=== PATIENT | male | born 1940 | race Hispanic/Latino ===

== ENCOUNTER 2018-05-01 11:10 | Emergency (ER) | payer MEDICARE, MEDICAID ==
[~2018-05-01] VITALS: Ht 175.3 cm; Wt 100.0 kg
[~2018-05-01 11:10] MED LIST: ASPIRIN ENTERIC81 MG PO; ASPIRIN81 M1 OR; ATENOLOL25 MG OR; ATENOLOL25 MG PO; BACTRIM DS1 TAB PO; CIPRO XR500 MG PO; CIPRO750 MG PO; CIPROFLOXACN500 MG PO; ENALAPRIL2.5 MG PO; LORTAB 5/3255 MG PO; LORTAB5 OR; OMEGA-31000 MG OR; ONDANSETRON4 MG PO; OXYCO/APAP1 TA2 OR; PRAVACHOL40 MG PO; PRAVACHOL80 MG OR; PRAVASTATIN20 MG PO; PRAVASTATIN40 MG OR; ST JOSEPH75 MG OR; TAM75CAP PO; ULTRAM50 M1 PO; [UNRECOGNIZED DRUG - REMARK]; [UNRECOGNIZED DRUG - REMARK]
[2018-05-01 11:49] LABS: HEMATOCRIT 45.7 % (39.0-50.0); HEMOGLOBIN 15.2 g/dl (14.0-18.0); IMMATURE GRANULOCYTES 0.3 % (0.0-1.0); MEAN CELL VOLUME 90.1 fL CALC (80.0-100.0); MEAN CORPUSCULAR HGB CONC 33.3 g/L CALC (32.0-36.0); NEUT# 6.89 thou/uL (1.82-7.42); RED BLOOD COUNT 5.07 mill/uL (4.70-6.10); RED CELL DISTRI WIDTH 12.9 % (11.5-15.5)
[2018-05-01 12:16] LABS: ALBUMIN 3.9 g/dL (3.2-5.0); ALKALINE PHOSPHATASE 101 u/l (38-126); ANION GAP 12 (6-22 (CALC)); BILIRUBIN, TOTAL 0.6 mg/dL (0.0-1.4); BUN 22 mg/dL (8-23); BUN/CREATININE RATIO 23 (12-20 (CALC)); CARBON DIOXIDE 29 mmol/l (22-30); CHLORIDE 104 mmol/l (95-108); GFR > 60 ML/MIN (>=60 (CALC)); GFR FOR AFR.AMER. > 60 ML/MIN (>=60 (CALC)); LIPASE 202 u/l (23-300); SGOT/AST 20 u/l (19-48); SGPT/ALT 34 u/l (11-66); SODIUM 141 mmol/l (137-146); TOTAL PROTEIN 7.3 g/dL (6.3-8.2)
[2018-05-01] MEDS ORDERED: TORADOL PO (12:56)
[2018-05-01] MEDS ORDERED: PROVENTIL108 MCG/AC IN (13:01)
[2018-05-01] MEDS ORDERED: ZITHROMAX250 MG PO (13:01)
[2018-05-01 13:25] VITALS: BP 132/78
== END 2018-05-01 13:25 | disposition home or self-care (01) ==
LOC: ED 11:10
PROVIDERS: Emergency Medicine
DX: R07.89 Other chest pain (principal); J40 Bronchitis, not specified as acute or chronic; R51 Headache; R06.00 Dyspnea, unspecified

== ENCOUNTER 2018-08-14 08:59 | Inpatient (IN) | payer MEDICARE, MEDICAID ==
[~2018-08-14] VITALS: Ht 175.3 cm; Wt 99.5 kg
[~2018-08-14 08:59] MED LIST changes: +PROVENTIL108 MCG/AC IN; +TORADOL PO; +ZITHROMAX250 MG PO
[2018-08-14] MEDS ORDERED: NORCO1 TA1 PO (10:20)
[2018-08-19] VITALS (8 sets, daily range): BP systolic 102–127; BP diastolic 33–66
[2018-08-19] MEDS ORDERED: CEPHALEXIN500 MG PO (07:24)
[2018-08-19] MEDS ORDERED: BENZONATATE200 MG PO (07:24)
[2018-08-20] VITALS: BP 151/67
[2018-08-20 04:00] VITALS: BP 113/63
[2018-08-20 05:22] LABS: IMMATURE GRANULOCYTES 0.4 % (0.0-5.0); MEAN CELL VOLUME 87.6 fL CALC (80.0-100.0); MEAN CORPUSCULAR HGB 30.2 pG CALC (26.0-32.0); MEAN CORPUSCULAR HGB CONC 34.5 g/L CALC (32.0-36.0); NEUT# 6.62 thou/uL (1.82-7.42); RED BLOOD COUNT 4.27 mill/uL (4.70-6.10); RED CELL DISTRI WIDTH 11.7 % (11.5-15.5)
[2018-08-20 05:47] LABS: ALKALINE PHOSPHATASE 53 u/l (38-126); ANION GAP 11 (6-22 (CALC)); BILIRUBIN, TOTAL 0.8 mg/dL (0.0-1.4); BUN 17 mg/dL (8-23); BUN/CREATININE RATIO 21 (12-20 (CALC)); CARBON DIOXIDE 27 mmol/l (22-30); CHLORIDE 103 mmol/l (95-108); CREATININE 0.8 mg/dL (0.7-1.3); GFR > 60 ML/MIN (>=60 (CALC)); GFR FOR AFR.AMER. > 60 ML/MIN (>=60 (CALC)); POTASSIUM 4.2 mmol/l (3.5-5.1); SGOT/AST 29 u/l (19-48); SODIUM 136 mmol/l (137-146)
[2018-08-20 05:58] LABS: ALBUMIN 3.1 g/dL (3.2-5.0); MAGNESIUM 1.4 mg/dL (1.6-2.3); TOTAL PROTEIN 5.5 g/dL (6.3-8.2)
[2018-08-20 06:03] LABS: HEMATOCRIT 37.4 % (39.0-50.0); HEMOGLOBIN 12.9 g/dl (14.0-18.0)
[2018-08-20 07:48] VITALS: BP 109/64
[2018-08-20 11:44] VITALS: BP 106/69
[2018-08-20] MEDS ORDERED: TRAMADOL HCL50 MG PO (12:36)
== END 2018-08-20 13:40 | disposition home health service (06) | DRG 483 ==
LOC: MS2 08-19 07:11 → OR 08-19 09:30 → MS2 08-20 13:40
PROVIDERS: Internal Medicine Nephrology; ADMIT Orthopaedic Surgery; ATTEND Orthopaedic Surgery
PROC: 0RRK00Z Replacement of Left Shoulder Joint with Reverse Ball and Socket Synthetic Substitute, Open Approach (ICD-10-PCS; principal; 2018-08-19)
PROC: 0LS40ZZ Reposition Left Upper Arm Tendon, Open Approach (ICD-10-PCS; 2018-08-19)
DX: M19.012 Primary osteoarthritis, left shoulder (principal); S46.112A Strain of muscle, fascia and tendon of long head of biceps, left arm, initial encounter; M75.112 Incomplete rotator cuff tear or rupture of left shoulder, not specified as traumatic; I25.2 Old myocardial infarction; X58.XXXA Exposure to other specified factors, initial encounter; Z87.891 Personal history of nicotine dependence
CPT/HCPCS: C9290; J2710

== ENCOUNTER 2018-11-11 08:00 | Outpatient (RCR) | payer MEDICARE, MEDICAID ==
[~2018-11-11 08:00] MED LIST changes: +BENZONATATE200 MG PO; +CEPHALEXIN500 MG PO; +NORCO1 TA1 PO; +TRAMADOL HCL50 MG PO
== END 2018-12-24 11:29 | disposition home or self-care (01) ==
LOC: OT 08:00
PROVIDERS: ATTEND Orthopaedic Surgery
DX: Z47.1 Aftercare following joint replacement surgery (principal); Z96.612 Presence of left artificial shoulder joint

== ENCOUNTER 2019-10-11 07:54 | Emergency (ER) | payer MEDICARE, MEDICAID ==
[~2019-10-11] VITALS: Ht 175.3 cm; Wt 90.0 kg
[2019-10-11 09:20] LABS: HEMOGLOBIN 14.2 g/dl (14.0-18.0); IMMATURE GRANULOCYTES 0.3 % (0.0-5.0); MEAN CELL VOLUME 86.7 fL CALC (80.0-100.0); MEAN CORPUSCULAR HGB 29.5 pG CALC (26.0-32.0); NEUT# 7.28 thou/uL (1.82-7.42); RED BLOOD COUNT 4.82 mill/uL (4.70-6.10); RED CELL DISTRI WIDTH 12.1 % (11.5-15.5)
[2019-10-11 09:29] LABS: HEMATOCRIT 41.8 % (39.0-50.0)
[2019-10-11 09:33] LABS: ALBUMIN 3.7 g/dL (3.2-5.0); ALKALINE PHOSPHATASE 75 u/l (38-126); ANION GAP 12 (6-22 (CALC)); BILIRUBIN, TOTAL 0.8 mg/dL (0.0-1.4); BUN 17 mg/dL (8-23); BUN/CREATININE RATIO 23 (12-20 (CALC)); CARBON DIOXIDE 27 mmol/l (22-30); CHLORIDE 100 mmol/l (95-108); CREATININE 0.7 mg/dL (0.7-1.3); GFR > 60 ML/MIN (>=60 (CALC)); GFR FOR AFR.AMER. > 60 ML/MIN (>=60 (CALC)); POTASSIUM 4.4 mmol/l (3.5-5.1); SGOT/AST 24 u/l (19-48); SODIUM 135 mmol/l (137-146); TOTAL PROTEIN 6.6 g/dL (6.3-8.2)
[2019-10-11 11:00] VITALS: BP 158/71
[2019-10-11] MEDS ORDERED: ULTRAM50 M1 PO (11:14)
[2019-10-11] MEDS ORDERED: CEPHALEXIN500 MG PO (11:14)
== END 2019-10-11 11:49 | disposition home or self-care (01) ==
LOC: ED 07:54
PROVIDERS: Emergency Medicine
DX: S09.93XA Unspecified injury of face, initial encounter (principal); J06.9 Acute upper respiratory infection, unspecified; G93.9 Disorder of brain, unspecified; W19.XXXA Unspecified fall, initial encounter

== ENCOUNTER 2021-09-18 22:45 | Emergency (ER) | payer MEDICARE, MEDICAID ==
[~2021-09-18] VITALS: Ht 175.3 cm; Wt 88.6 kg
[2021-09-18 23:54] LABS: HEMATOCRIT 43.5 % (39.0-50.0); HEMOGLOBIN 14.8 g/dl (14.0-18.0); IMMATURE GRANULOCYTES 0.2 % (0.0-5.0); MEAN CORPUSCULAR HGB 29.6 pG CALC (26.0-32.0); NEUT# 8.62 thou/uL (1.82-7.42); RED CELL DISTRI WIDTH 12.2 % (11.5-15.5)
[2021-09-19 00:14] LABS: ALBUMIN 3.9 g/dL (3.2-5.0); ALKALINE PHOSPHATASE 84 u/l (38-126); AMYLASE 84 u/l (30-110); ANION GAP 11 (6-22 (CALC)); BUN 22 mg/dL (8-23); BUN/CREATININE RATIO 28 (12-20 (CALC)); CARBON DIOXIDE 30 mmol/l (22-30); CHLORIDE 101 mmol/l (95-108); CREATININE 0.8 mg/dL (0.7-1.3); GFR > 60 ML/MIN (>=60 (CALC)); GFR FOR AFR.AMER. > 60 ML/MIN (>=60 (CALC)); LIPASE 144 u/l (23-300); POTASSIUM 4.2 mmol/l (3.5-5.1); SGOT/AST 29 u/l (19-48); SODIUM 138 mmol/l (137-146); TOTAL PROTEIN 6.9 g/dL (6.3-8.2)
[2021-09-19 01:25] LABS: URINE BILIRUBIN - DIPSTICK NEGATIVE (NEGATIVE); URINE BLOOD DIPSTICK NEGATIVE (NEGATIVE); URINE COLOR YELLOW; URINE GLUCOSE - DIPSTICK NEGATIVE (NEGATIVE); URINE KETONE 15 mg/dL (NEGATIVE); URINE LEUK ESTERASE NEGATIVE (NEGATIVE); URINE PH 6.5 (4.5-8.0); URINE PROTEIN - DIPSTICK NEGATIVE (NEG-TRACE); URINE SPECIFIC GRAVITY 1.025; URINE UROBILINOGEN - DIPSTICK 0.2 E.U./dL (0.2)
[2021-09-19 01:26] LABS: URINE NITRITE - DIPSTICK NEGATIVE (Negative)
[2021-09-19 04:48] VITALS: BP 118/57
[2021-09-19] MEDS ORDERED: PREGABALIN50 MG PO (15:53)
== END 2021-09-19 04:45 | disposition home or self-care (01) ==
LOC: ED 22:45
PROVIDERS: Family Medicine
DX: K56.600 Partial intestinal obstruction, unspecified as to cause (principal); Z95.5 Presence of coronary angioplasty implant and graft
CPT/HCPCS: Q9967; S0164

== ENCOUNTER 2021-09-19 14:35 | Inpatient (IN) | payer MEDICARE, MEDICAID ==
[~2021-09-19] VITALS: Ht 175.3 cm; Wt 91.0 kg
[2021-09-19 15:44] LABS: HEMATOCRIT 47.5 % (39.0-50.0); IMMATURE GRANULOCYTES 0.1 % (0.0-5.0); MEAN CELL VOLUME 88.1 fL CALC (80.0-100.0); MEAN CORPUSCULAR HGB 29.7 pG CALC (26.0-32.0); MEAN CORPUSCULAR HGB CONC 33.7 g/dL CAL (32.0-36.0); NEUT# 9.51 thou/uL (1.82-7.42); RED BLOOD COUNT 5.39 mill/uL (4.70-6.10); RED CELL DISTRI WIDTH 12.4 % (11.5-15.5)
[2021-09-19] MEDS ORDERED: PREGABALIN50 MG PO (15:53)
[2021-09-19 15:54] LABS: ALBUMIN 4.4 g/dL (3.2-5.0); ALKALINE PHOSPHATASE 87 u/l (38-126); ANION GAP 11 (6-22 (CALC)); BUN 19 mg/dL (8-23); BUN/CREATININE RATIO 23 (12-20 (CALC)); CARBON DIOXIDE 32 mmol/l (22-30); CHLORIDE 97 mmol/l (95-108); CREATININE 0.9 mg/dL (0.7-1.3); GFR > 60 ML/MIN (>=60 (CALC)); GFR FOR AFR.AMER. > 60 ML/MIN (>=60 (CALC)); POTASSIUM 4.1 mmol/l (3.5-5.1); SGOT/AST 31 u/l (19-48); SODIUM 136 mmol/l (137-146); TOTAL PROTEIN 7.7 g/dL (6.3-8.2)
[2021-09-19 15:55] LABS: BILIRUBIN, TOTAL 1.5 mg/dL (0.0-1.4)
[2021-09-19 17:15] VITALS: BP 141/78
[2021-09-19 20:00] VITALS: BP 120/67
[2021-09-20] VITALS: BP 129/74
[2021-09-20 04:00] VITALS: BP 150/67
[2021-09-20 04:41] LABS: HEMATOCRIT 42.2 % (39.0-50.0); HEMOGLOBIN 14.4 g/dl (14.0-18.0); MEAN CELL VOLUME 87.9 fL CALC (80.0-100.0); MEAN CORPUSCULAR HGB CONC 34.1 g/dL CAL (32.0-36.0); RED BLOOD COUNT 4.8 mill/uL (4.70-6.10); RED CELL DISTRI WIDTH 12.3 % (11.5-15.5)
[2021-09-20 04:55] LABS: ANION GAP 11 (6-22 (CALC)); BUN 22 mg/dL (8-23); BUN/CREATININE RATIO 24 (12-20 (CALC)); CARBON DIOXIDE 26 mmol/l (22-30); CHLORIDE 103 mmol/l (95-108); CREATININE 0.9 mg/dL (0.7-1.3); GFR > 60 ML/MIN (>=60 (CALC)); GFR FOR AFR.AMER. > 60 ML/MIN (>=60 (CALC)); POTASSIUM 3.9 mmol/l (3.5-5.1); SODIUM 136 mmol/l (137-146)
[2021-09-20 04:56] LABS: MAGNESIUM 1.9 mg/dL (1.6-2.3)
[2021-09-20 08:48] VITALS: BP 158/87
[2021-09-20 10:50] VITALS: BP 125/63
[2021-09-20 14:59] VITALS: BP 139/71
[2021-09-20 19:16] VITALS: BP 128/64
[2021-09-21] VITALS: BP 125/68
[2021-09-21 04:00] VITALS: BP 118/58
[2021-09-21 04:28] LABS: HEMATOCRIT 39.9 % (39.0-50.0); HEMOGLOBIN 13.4 g/dl (14.0-18.0); MEAN CELL VOLUME 88.3 fL CALC (80.0-100.0); MEAN CORPUSCULAR HGB 29.6 pG CALC (26.0-32.0); MEAN CORPUSCULAR HGB CONC 33.6 g/dL CAL (32.0-36.0); RED BLOOD COUNT 4.52 mill/uL (4.70-6.10); RED CELL DISTRI WIDTH 12.2 % (11.5-15.5)
[2021-09-21 04:40] LABS: ANION GAP 10 (6-22 (CALC)); BUN 28 mg/dL (8-23); BUN/CREATININE RATIO 33 (12-20 (CALC)); CARBON DIOXIDE 25 mmol/l (22-30); CHLORIDE 107 mmol/l (95-108); CREATININE 0.8 mg/dL (0.7-1.3); GFR > 60 ML/MIN (>=60 (CALC)); GFR FOR AFR.AMER. > 60 ML/MIN (>=60 (CALC)); MAGNESIUM 1.9 mg/dL (1.6-2.3); POTASSIUM 3.7 mmol/l (3.5-5.1); SODIUM 138 mmol/l (137-146)
[2021-09-21 07:14] VITALS: BP 124/60
[2021-09-21 10:30] VITALS: BP 139/80
[2021-09-21 15:59] VITALS: BP 135/65
[2021-09-21 19:00] VITALS: BP 166/86
[2021-09-22] VITALS: BP 124/69
[2021-09-22 04:00] VITALS: BP 138/69
[2021-09-22 05:43] LABS: HEMOGLOBIN 13.9 g/dl (14.0-18.0); MEAN CELL VOLUME 87.2 fL CALC (80.0-100.0); MEAN CORPUSCULAR HGB 29.6 pG CALC (26.0-32.0); MEAN CORPUSCULAR HGB CONC 33.9 g/dL CAL (32.0-36.0); RED BLOOD COUNT 4.7 mill/uL (4.70-6.10)
[2021-09-22 06:00] LABS: ANION GAP 12 (6-22 (CALC)); BUN 23 mg/dL (8-23); BUN/CREATININE RATIO 30 (12-20 (CALC)); CARBON DIOXIDE 23 mmol/l (22-30); CHLORIDE 108 mmol/l (95-108); CREATININE 0.8 mg/dL (0.7-1.3); GFR > 60 ML/MIN (>=60 (CALC)); GFR FOR AFR.AMER. > 60 ML/MIN (>=60 (CALC)); MAGNESIUM 1.8 mg/dL (1.6-2.3); POTASSIUM 3.6 mmol/l (3.5-5.1); SODIUM 138 mmol/l (137-146)
[2021-09-22 07:26] VITALS: BP 132/67
[2021-09-22 10:43] VITALS: BP 150/76
== END 2021-09-22 14:35 | disposition home or self-care (01) | DRG 390 ==
LOC: ED 14:35 → ED-I 15:01 → ED 15:14 → MS2 15:15
PROVIDERS: Emergency Medicine; ADMIT Hospitalist; ATTEND Hospitalist
DX: K56.600 Partial intestinal obstruction, unspecified as to cause (principal); K52.9 Noninfective gastroenteritis and colitis, unspecified; D69.6 Thrombocytopenia, unspecified; I25.10 Atherosclerotic heart disease of native coronary artery without angina pectoris; Z95.5 Presence of coronary angioplasty implant and graft; Z72.89 Other problems related to lifestyle; Z90.49 Acquired absence of other specified parts of digestive tract; Z20.822 Contact with and (suspected) exposure to COVID-19
CPT/HCPCS: Q9967; S0164

== ENCOUNTER 2022-03-21 10:57 | Emergency (ER) | payer OTHER, MEDICARE, MEDICAID ==
[~2022-03-21] VITALS: Ht 175.3 cm; Wt 89.5 kg
[~2022-03-21 10:57] MED LIST changes: +PREGABALIN50 MG PO
[2022-03-21 11:08] VITALS: BP 133/68
[2022-03-21 11:16] VITALS: BP 127/75
[2022-03-21 11:41] LABS: HEMATOCRIT 45.2 % (39.0-50.0); IMMATURE GRANULOCYTES 0.4 % (0.0-5.0); MEAN CELL VOLUME 87.6 fL CALC (80.0-100.0); MEAN CORPUSCULAR HGB 29.1 pG CALC (26.0-32.0); MEAN CORPUSCULAR HGB CONC 33.2 g/dL CAL (32.0-36.0); NEUT# 4.45 thou/uL (1.82-7.42); RED BLOOD COUNT 5.16 mill/uL (4.70-6.10); RED CELL DISTRI WIDTH 12.9 % (11.5-15.5)
[2022-03-21 11:46] LABS: GFR > 60 ML/MIN (>=60 (CALC)); GFR FOR AFR.AMER. > 60 ML/MIN (>=60 (CALC))
[2022-03-21 11:58] LABS: ALBUMIN 4.1 g/dL (3.2-5.0); ALKALINE PHOSPHATASE 98 u/l (38-126); BUN 28 mg/dL (8-23); BUN/CREATININE RATIO 27 (12-20 (CALC)); CARBON DIOXIDE 27 mmol/l (22-30); CHLORIDE 104 mmol/l (95-108); GFR > 60 ML/MIN (>=60 (CALC)); GFR FOR AFR.AMER. > 60 ML/MIN (>=60 (CALC)); LIPASE 193 u/l (23-300); SGOT/AST 31 u/l (19-48); SODIUM 140 mmol/l (137-146); TOTAL PROTEIN 7.3 g/dL (6.3-8.2)
[2022-03-21 12:01] LABS: ANION GAP 14 (6-22 (CALC)); BILIRUBIN, TOTAL 0.8 mg/dL (0.0-1.4); POTASSIUM 4.6 mmol/l (3.5-5.1)
[2022-03-21] MEDS ORDERED: TRAMADOL HYDROC50 M1 PO (13:37)
[2022-03-21 14:07] VITALS: BP 127/75
== END 2022-03-21 14:20 | disposition home or self-care (01) | DRG 605 ==
LOC: ED 10:57
PROVIDERS: Family Medicine
DX: S40.012A Contusion of left shoulder, initial encounter (principal); V53.5XXA Driver of pick-up truck or van injured in collision with car, pick-up truck or van in traffic accident, initial encounter; Z96.612 Presence of left artificial shoulder joint; Z95.5 Presence of coronary angioplasty implant and graft
CPT/HCPCS: Q9967